=== PATIENT | male | born 1965 | race Two or more races ===

== ENCOUNTER 2024-11-29 09:43 | Outpatient (RCR) | payer MEDICAID, SELFPAY | END 2024-12-29 23:59 | disposition home or self-care (01) | LOC: SCTC 09:43 | PROVIDERS: PCP Family Medicine; Referring Provider Family Medicine; Visit Provider Internal Medicine Hematology & Oncology | DX: C18.0 Malignant neoplasm of cecum (principal); C18.2 Malignant neoplasm of ascending colon | CPT/HCPCS: 99213; G0463 ==